=== PATIENT | male | born 1960 | race Caucasian/White ===

== ENCOUNTER → 2019-12-02 | Outpatient (CLI) | payer BC ==
[~2019-12-02] MED LIST: BLOOD PRESSURE MED; NO HOME MEDICATIONS; PERCOCET 325 MG1 TA2 PO; TYLENOL W/COD1 UDTAB PO
== END ==
LOC: COL.PUL 07:46
DX: J45.30 Mild persistent asthma, uncomplicated (principal)

== ENCOUNTER → 2019-12-10 | Outpatient (CLI) | payer BC | LOC: COL.PUL 08:00 | DX: J45.30 Mild persistent asthma, uncomplicated (principal) ==